=== PATIENT | male | born 1975 | race Caucasian/White ===

== ENCOUNTER 2016-11-23 09:16 | Observation (INO) | payer OTHER ==
[2017-04-26] MEDS ORDERED: LIDOCAINE 1% 2 ML INJ ID PRN (07:23)
[2017-04-26] MEDS ORDERED: BACITRACIN ZINC 14.2 GM OINTTUBE TP ONE (07:23)
[2017-04-26] MEDS ORDERED: OXYMETAZOLINE 30 ML NASAL SPRAY ONE (07:23)
[2017-04-26] MEDS ORDERED: BUPIVACAINE 0.25% 30 ML SDV ONE (07:23)
[2017-04-26] MEDS ORDERED: LR 1,000 ML IV ONE (07:23)
[2017-04-26] MEDS ORDERED: MIDAZOLAM 2 MG/2 ML VIAL IVP ONE (08:03)
[2017-04-26] MEDS ORDERED: MEPERIDINE 25 MG/ML SYR IVP PRN (08:05)
[2017-04-26] MEDS ORDERED: ENALAPRILAT DIHYDRATE 1.25 MG/ML VIAL IVP PRN (08:05)
[2017-04-26] MEDS ORDERED: LR 500 ML IV PRN (08:05)
[2017-04-26] MEDS ORDERED: ONDANSETRON 4 MG/2 ML VIAL IVP PRN (08:05)
[2017-04-26] MEDS ORDERED: PROMETHAZINE HCL 25 MG/ML INJ IVP PRN (08:05)
[2017-04-26] MEDS ORDERED: OXYCODONE/APAP 5/325 TAB PO PRN (08:05)
[2017-04-26] MEDS ORDERED: ACETAMINOPHEN 500 MG TAB PO PRN (08:05)
[2017-04-26] MEDS ORDERED: NALOXONE HCL 0.4 MG/ML INJ IVP PRN (08:05)
--- NOTE | 2017-04-26 08:05 | PDANEPAE ---
ANE Past Medical History - Cardiovascular History Hx Hypertension: No Hx Arrhythmias: No Hx Chest Pain: No Hx Coronary Artery / Peripheral Vascular Disease: No Hx CHF / Valvular Disease: No Hx Palpitations: No - Pulmonary History Hx COPD: No Hx Asthma/Reactive Airway Disease: Yes Hx Recent Upper Respiratory Infection: No Hx Oxygen in Use at Home: No Hx Sleep Apnea: Yes Sleep Apnea Screening Result - Last Documented: Positive Pulmonary History Comment: Allergy induced asthma. LAVONNE. SINUS INFECTION 07/2016 - Neurologic History Hx Cerebrovascular Accident: No Hx Seizures: No Hx Dementia: No - Endocrine History Hx Diabetes: No - Renal History Hx Renal Disorders: No - Liver History Hx Hepatic Disorders: No - Neurological & Psychiatric Hx Hx Neurological and Psychiatric Disorders: No - Cancer History Hx Cancer: No - Congenital Disorder History Hx Congenital Disorders: No - GI History Hx Gastrointestinal Disorders: No - Other Health History Other Health History: SEASONAL ALLERGIES - Chronic Pain History Chronic Pain: No - Surgical History Prior Surgeries: TURBINATE REDUCTION 2015. TEAR DUCT INFANT ANE Review of Systems Review of Systems: - Exercise capacity Exercise capacity: >=4 METS METS (RN): 4 METS ANE Patient History - Allergies Allergies/Adverse Reactions: No Known Allergies Allergy (Unverified 10/09/16 16:18) - Home Medications Home Medications: Atorvastatin Calcium [Lipitor 20 mg (*)] 20 mg PO DAILY 10/05/16 [Last Taken ] Cholecalciferol Vit D3 [Vitamin D3 (*)] 1,000 units PO DAILY 10/05/16 [Last Taken 04/25/17] Fenofibrate [Lipofen] 150 mg PO DAILY 10/05/16 [Last Taken 04/25/17] Herbals/Supplements -Info Only 1 ea PO DAILY 10/05/16 [Last Taken 04/25/17] Multivitamins [Multivitamin (*)] 1 each PO DAILY 10/05/16 [Last Taken 04/25/17] Weston-3 Fatty Acids [Fish Oil 1000 mg (*)] 4,000 mg PO DAILY 10/05/16 [Last Taken 04/23/17] Allertec BID 10/09/16 [Last Taken 02/25/17] Flonase Nasal [place] BID 10/09/16 [Last Taken 04/26/17 06:00] Symbicort 80-4.5 Mcg Inhaler IH BID 04/26/17 [Last Taken 04/26/17 06:00] - NPO status NPO Since - Liquids (Date): 04/25/17 NPO Since - Liquids (Time): 20:00 NPO Since - Solids (Date): 04/25/17 NPO Since - Solids (Time): 20:00 - Anes Hx Anes Hx: no prior problems - Smoking Hx Smoking Status: Former smoker ANE Labs/Vital Signs - Vital Signs Blood Pressure: 134/85 Heart Rate: 69 Respiratory Rate: 16 O2 Sat (%): 94 Height: 180.34 cm Weight: 90.718 kg ANE Physical Exam - Airway Neck exam: FROM Mallampati Score: Class 1 Mouth exam: normal dental/mouth exam - Pulmonary Pulmonary: no respiratory distress, no rales or rhonchi, clear to auscultation - Cardiovascular Cardiovascular: regular rate and rhythym, no murmur, rub, or gallop - ASA Status ASA Status: II ANE Anesthesia Plan Anesthesia Plan: general endotracheal anesthesia
[2017-04-26] MEDS ORDERED: MIDAZOLAM 2 MG/2 ML VIAL ONE (08:07)
--- NOTE | 2017-04-26 08:14 | PDGENHP ---
History & Physical Chief Complaint: LAVONNE History of Present Illness: LAVONNE with tonsillar hypertrophy. Nontolerant of CPAP. Pertinent Past, Social, Family History: NKDA. H/O septoplasty. No pertainent family history Relevant Physical Exam: NAD. Tonsillary hypertrophy. CTA, RR Cardiorespiratory Assessment: Assessment & Plan: LAVONNE. Good candidate for UPPP, BOT coblation
[2017-04-26] MEDS ORDERED: PROPOFOL 200 MG/20 ML VIAL ONE ×2 (08:15→09:38)
[2017-04-26] MEDS ORDERED: DEXAMETHASONE 4 MG/ML VIAL ONE ×3 (08:16→09:56)
[2017-04-26] MEDS ORDERED: ONDANSETRON 4 MG/2 ML VIAL ONE (08:16)
[2017-04-26] MEDS ORDERED: LIDOCAINE 2% 5 ML SDV ONE ×2 (08:16→09:38)
[2017-04-26] MEDS ORDERED: LIDO/EPI 2%** Not for Epidural 20 ML MDV ONE (08:24)
[2017-04-26] MEDS ORDERED: ESMOLOL HCL 100 MG/10 ML VIAL IV ONE (08:38)
[2017-04-26] MEDS ORDERED: GLYCOPYRROLATE 0.2 MG/1 ML VIAL ONE (08:38)
[2017-04-26] MEDS ORDERED: KETAMINE 100 MG/10 ML SYR ONE (08:38)
--- NOTE | 2017-04-26 10:01 | POSTOPPROG ---
Post Op Note Date of Operation: 04/26/17 Surgeon: Ramu Logan Anesthesiologist: Akbar Anesthesia: GET(General Endotracheal) Pre-op Diagnosis: LAVONEN Post-op Diagnosis: LAVONNE Indication: LAVONNE Procedure: UPPP, BOT resection Findings: Chronic tonsillitis. Lingual tonsil hypertrophy. Inf/Abcess present in the surg proc area at time of surgery?: No Depth: Deep Incisional (Fascial) EBL: Minimal Complications: NONE Specimen(s): R&L tonsils
--- NOTE | 2017-04-26 10:21 | POSTANESTH ---
Post Anesthetic Evaluation Cardiovascular Status: Normal, Stable, Similar to Pre-Op Cond Respiratory Status: Normal, Stable, Similar to Pre-op Cond. Level of Consciousness/Mental Status: Can Participate in Eval, Alert and Oriented Pain Control: Adequate, Prn Tx Ordered Nausea/Vomiting Control: Adequate, Prn Tx Ordered Complications Possibly Related to Anesthesia: None Noted
[2017-04-26] MEDS ORDERED: fentaNYL 100 MCG/2 ML INJ ONE ×2 (10:34→11:23)
[2017-04-26] MEDS: fentaNYL 100 MCG/2 ML INJ IVP PRN ×4 (10:36→12:07)
[2017-04-26] MEDS ORDERED: DIAZEPAM 10 MG/2 ML SYR ONE (11:01)
[2017-04-26] MEDS ORDERED: DIAZEPAM 10 MG/2 ML SYR IVP PRN (11:03)
[2017-04-26] MEDS: D5W LR 1,000 ML IV SCH ×2 (13:10→22:35)
[2017-04-26] MEDS: HYDROCOD/APAP 7.5/325 IN 15ML UDCUP PO PRN ×3 (13:29→22:34)
[2017-04-26] MEDS ORDERED: SODIUM CL NASAL 45 ML BTL EACHNARE PRN (16:57)
[2017-04-26] MEDS ORDERED: SODIUM CL NASAL GEL 14.1 GM TUBE TP PRN (16:58)
[2017-04-26] MEDS: ONDANSETRON 4 MG/2 ML VIAL IVP PRN (17:12)
[2017-04-26] MEDS ORDERED: ORAL BALANCE GEL TUBE PO PRN (23:17)
[2017-04-27] MEDS: HYDROCOD/APAP 7.5/325 IN 15ML UDCUP PO PRN ×2 (04:25→09:59)
[2017-04-27] MEDS: ONDANSETRON 4 MG/2 ML VIAL IVP PRN (04:27)
[2017-04-27 07:39] VITALS: BP 199/65; PULSE 64; RESP 16; TEMP 97.4; O2SAT 100
--- NOTE | 2017-04-27 09:12 | SOAPPROG ---
SOAP Progress Note Assessment/Plan: Assessment: S/P 04/26/17 UPPP, tonsillectomy, BOT reduction. Good post op findings. Pain reasonably controlled. Plan: Continue soft diet. Steroid in IV today before discharge. D/C home today Follow up in 3 weeks See printed discharge instruction sheet in chart. 04/27/17 09:08 04/27/17 09:10 Subjective: Complaints of pain. Controlled on oral and IV. Objective: Vital Signs Temp Pulse Resp BP Pulse Ox 36.3 C 64 16 199/65 H 100 04/27/17 07:38 04/27/17 07:38 04/27/17 07:38 04/27/17 07:38 04/27/17 07:38 04/26/17 04/27/17 04/28/17 05:59 05:59 05:59 Intake Total 1280 400 Output Total 30 Balance 1250 400 Physical Exam - Physical Exam General Appearance: WD/WN, alert, mild distress EENT: PERRL/EOMI, No pharynx normal (Incisions intact.) Neck: full range of motion, supple, normal inspection Respiratory: No respiratory distress, No stridor ICD10 Worksheet Patient Problems: Problems Problem Status Onset Post-op pain Acute S/P uvulopalatopharyngoplasty Acute - ICD10 Problem Qualifiers (1) Post-op pain (2) S/P uvulopalatopharyngoplasty
[2017-04-27] MEDS ORDERED: DEXAMETHASONE 10 MG/ML VIAL IVP ONE (09:13)
--- NOTE | 2017-04-27 09:33 | GDS ---
[f rep st] DISCHARGE SUMMARY REASON FOR ADMISSION: Status post UPPP with base of tongue resection. HOSPITAL COURSE: The patient was admitted for postoperative airway and pain control. He did well po stoperatively, and had an unremarkable course. He resumed his activities of daily living on postoper ative day 0, and continued to do well through to today. DISCHARGE MEDICATIONS: He was discharged on home medications, plus oral liquid pain medicine. He wa s given postoperative instructions and a prescription for pain medicine. FOLLOWUP: Followup was recommended for 3 weeks. /[id number]/MODL
--- NOTE | 2017-04-27 10:05 | GOP ---
[f rep st] OPERATIVE REPORT DATE OF OPERATION: SURGEON: Ramu Logan MD ANESTHESIA: General. PREOPERATIVE DIAGNOSIS: Obstructive sleep apnea. POSTOPERATIVE DIAGNOSIS: Obstructive sleep apnea. PROCEDURE PERFORMED: Uvulopalatopharyngoplasty, base of tongue Coblation. FINDINGS: Cryptic tonsils with tonsilliths. Lingual tonsil hypertrophy. SPECIMENS: Tonsils. ESTIMATED BLOOD LOSS: 10 mL. INDICATIONS: The patient was seen in the outpatient clinic and found to have a history of obstructiv e sleep apnea with non-tolerance of CPAP or mandibular advancement therapy. Given this history and f indings, he was determined to be an appropriate candidate for the above-stated procedures. The risks , benefits, and alternatives to the procedures were explained at length to the patient who stated he understood and wished to go forward with the procedures. DESCRIPTION OF PROCEDURE: Patient was brought to the operating room by Anesthesiology and placed on the operating table. Once appropriate level of anesthesia was achieved, the table was turned 90 degr ees and a shoulder roll was placed. The patient was then prepped and draped in the usual fashion. A McIvor mouth gag was placed atraumatically in the oral cavity and suspended on a Winslow stand. The so ft palate was injected with 1% lidocaine with 1:100,000 epinephrine. The right tonsil was then excis ed first using Bovie cautery technique. There was minimal bleeding with this and hemostasis was achi eved using Bovie electrocautery and suction electrocautery alone. The left tonsil was then excised u sing Bovie electrocautery technique. Hemostasis was achieved with Bovie cautery and Bovie electrocau chioma alone. The uvula was then brought anteriorly with a Rajesh forceps and laid over the soft palat e. This provided the outline for removing the mucosa of the anterior soft palate. Relaxing incision s were made with Bovie electrocautery on the either side of the uvula in order provide some laxity to bring it forward. The anterior soft palate was then de-mucosalized within de-mucosalization extendi ng over the anterior portion of the uvula. A deep 4-0 Vicryl suture was then used to pexy the uvula anteriorly onto the soft palate. This was an initial tacking suture. The tip of the uvula was then sutured into the soft palate with a [id number] 4-0 Vicryl suture. [id number]-[id number] 4-0 Vicryl garcia tures were then used on either side of the uvula, two on each side. The tonsillar fossa was then dennis sed using simple 4-0 Vicryl sutures. With this portion of the procedure done, the mouth gag was geni kim and a small tongue blade was placed on the McIvor mouth gag. This was replaced and placed area operations director iorly in the oral cavity. A silk suture was placed through the anterior tongue and used to retract t he tongue. The mouth gag was then deployed. A 70 degree rigid video endoscope was then used to visu sebastián the tongue base and larynx. Coblation device was then used to resect the lingual tonsil. This was done down into the vallecular. Care was taken not to cause trauma or damage to the mucosa of th e epiglottis. Once the lingual tonsil was removed, hemostasis was achieved using Coblation cautery a lilly. The tongue stitch was removed. The McIvor mouth gag was removed. The oral cavity was suction ed out and an OG tube was passed. Minimal blood was suctioned with the OG tube. The patient tolerat ed the procedure well and was extubated in the operating room prior to being transferred in good cond ition to the postanesthesia care unit. COMPLICATIONS: None. /[id number]/MODL
== END 2017-04-27 12:23 | disposition home or self-care (01) ==
LOC: EEVIPCON 11:00 → F3E 04-26 06:58 → F1N 04-26 12:27
PROVIDERS: ADMIT Otolaryngology; ATTEND Otolaryngology
DX: G47.33 Obstructive sleep apnea (adult) (pediatric) (principal); J35.1 Hypertrophy of tonsils; J34.2 Deviated nasal septum
CPT/HCPCS: 42145; 42870; G0378; J0171; J1100; J2250; J2405; J2704; J3010